=== PATIENT | male | born 1980 | race Two or more races ===

== ENCOUNTER 2020-06-22 15:52 | Emergency (ER) | payer OTHER ==
[~2020-06-22] VITALS: Ht 180.3 cm; Wt 71.0 kg
--- NOTE | 2020-06-22 16:30 | NUR ---
Steristrip applied to tip of nose wound and d/c VS assessed with pt assisted to d/c desk with workman's comp. paperwork.
--- NOTE | 2020-06-22 17:23 | NUR ---
Pt is out of room to radiology at this time.
--- NOTE | 2020-06-22 18:21 | NUR ---
Pt back in room with metal piece removed from tip of nose by MD staff. Pt states thermal technician has already come in and irrigated wound just a minute ago and cleaned area with no new bleeding noted.
[2020-06-22 19:01] VITALS: BP 107/70
== END 2020-06-22 19:03 | disposition home or self-care (01) ==
LOC: ED 18:30
DX: T17.1XXA Foreign body in nostril, initial encounter (principal); F17.210 Nicotine dependence, cigarettes, uncomplicated; Z90.89 Acquired absence of other organs; X58.XXXA Exposure to other specified factors, initial encounter; Y93.89 Activity, other specified; Y92.89 Other specified places as the place of occurrence of the external cause; Y99.8 Other external cause status
CPT/HCPCS: 10120; 70160; 99284; 99285